=== PATIENT | male | born 1985 | race American Indian/Alaskan Native ===

== ENCOUNTER 2016-04-01 06:53 | Emergency (ER) | payer MEDICARE ==
[2016-04-01 07:34] LABS: Urine Drugs of Abuse Note Disclamer
[2016-04-01 07:59] LABS: Basophils % (Auto) 0.8 % (0.0-1.8); Eosinophils % (Auto) 0.9 % (0.0-4.3); Hematocrit 45.2 % (35.5-45.6); Hemoglobin 14.9 gm/dl (11.8-15.2); Mean Corpuscular HGB Conc 33 % (32-34); Mean Corpuscular Hemoglobin 29 pg (28-32); Mean Corpuscular Volume 87 fl (84-94); Platelet Count 279 K/mm3 (140-440); Red Blood Count 5.22 M/mm3 (3.65-5.03); White Blood Count 11.2 K/mm3 (4.5-11.0)
[2016-04-01 08:08] LABS: Anion Gap 18 mmol/L; Blood Urea Nitrogen 9 mg/dL (9-20); Calcium 9.2 mg/dL (8.4-10.2); Carbon Dioxide 25 mmol/L (22-30); Chloride 98.2 mmol/L (98-107); Glucose 103 mg/dL (75-100); Sodium 137 mmol/L (137-145)
[2016-04-01 08:16] LABS: Bilirubin,Urine NEG (Negative); Blood,Urine MOD (Negative); Ketones,Urine NEG (Negative); Leukocyte Esterase,Urine NEG (Negative); Mucus,Urine FEW /HPF; Nitrite,Urine NEG (Negative); Protein,Urine <15 mg/dL mg/dL (Negative); Urobilinogen,Urine < 2.0 mg/dL (<2.0)
[2016-04-01] MEDS ORDERED: CYMBALTA PO ONE (12:10)
[2016-04-01] MEDS ORDERED: FIORICET PO ONE (12:10)
--- NOTE | 2016-04-01 12:23 | Emergency Department Report ---
HPI - General Chief Complaint: Psych Time Seen by Provider: 04/01/16 12:02 - HPI HPI: Room 16 The patient is a 30-year-old male presenting with a chief complaint of schizoaffective disorder. Patient states he doesn't an argument with his mother property. The patient states he called police who chest. When they arrived they notified him that his mother had a restraining order against. The patient states the chief accounting officer wanted patient to come to the hospital for evaluation. The patient states he has not had any of his psychiatric medications for the past 5-6 days. Patient denies suicidal or homicidal ideation. Patient denies auditory hallucinations but admits to occasional visual hallucinations when he sees "colors." Location: Mental state Duration: [see above] Quality: Agitated Severity: Moderate Modifying factors: [see above] Context: [see above] Mode of transportation: [not driving] ED Past Medical Hx - Past Medical History Previous Medical History?: Yes Hx Hypertension: Yes Hx Diabetes: Yes Hx Psychiatric Treatment: Yes - Surgical History Past Surgical History?: No - Family History Family history: no significant - Social History Smoking Status: Current Every Day Smoker (1/2 pack per day) Substance Use Type: None, Marijuana - Medications Home Medications: Home Medications Medication Instructions Recorded Confirmed Last Taken Type DULoxetine [Cymbalta] 30 mg PO BID 06/30/15 06/30/15 3 Days Ago History Lurasidone HCl [Latuda] 40 mg PO QHS 06/30/15 06/30/15 3 Days Ago History diphenhydrAMINE [Benadryl CAP] 50 mg PO QHS PRN 06/30/15 06/30/15 3 Days Ago History Haloperidol Lactate [Haldol] 04/01/16 Unknown History Lisinopril [Zestril TAB] 04/01/16 Unknown History traZODone [Desyrel] 04/01/16 Unknown History ED Review of Systems ROS: Stated complaint: MH EVALUATION Other details as noted in HPI Comment: All other systems reviewed and negative Constitutional: denies: chills, fever Eyes: denies: eye pain, eye discharge, vision change ENT: denies: ear pain, throat pain Respiratory: denies: cough, shortness of breath, wheezing Cardiovascular: denies: chest pain, palpitations Endocrine: no symptoms reported Gastrointestinal: denies: abdominal pain, nausea, diarrhea Genitourinary: denies: urgency, dysuria Musculoskeletal: denies: back pain, joint swelling, arthralgia Skin: denies: rash, lesions Neurological: headache Psychiatric: visual hallucinations. denies: auditory hallucinations, homicidal thoughts, suicidal thoughts Hematological/Lymphatic: denies: easy bleeding, easy bruising Physical Exam - Physical Exam Vital Signs: Vital Signs 04/01/16 04/01/16 07:10 12:06 Temperature 98.2 F 98.4 F Pulse Rate 70 79 Respiratory 20 18 Rate Blood Pressure 140/102 Blood Pressure 137/92 [Left] O2 Sat by Pulse 100 100 Oximetry Physical Exam: GENERAL: The patient is well-developed well-nourished male lying on stretcher not appearing to be in acute distress. [] HEENT: Normocephalic. Atraumatic. Extraocular motions are intact. Patient has moist mucous membranes. NECK: Supple. No meningitic signs are noted. Trachea midline CHEST/LUNGS: Clear to auscultation. There is no respiratory distress noted. HEART/CARDIOVASCULAR: Regular. There is no tachycardia. There is no gallop rub or murmur. ABDOMEN: Abdomen is soft, nontender. Patient has normal bowel sounds. There is no abdominal distention. SKIN: There is no rash. There is no edema. There is no diaphoresis. NEURO: The patient is awake, alert, and oriented. The patient is cooperative. The patient has normal speech MUSCULOSKELETAL: There is no evidence of acute injury. ED Course Vital Signs 04/01/16 04/01/16 07:10 12:06 Temperature 98.2 F 98.4 F Pulse Rate 70 79 Respiratory 20 18 Rate Blood Pressure 140/102 Blood Pressure 137/92 [Left] O2 Sat by Pulse 100 100 Oximetry - Consultations Consultation #1: 04/01/16 13:00 Case discussed with mental health customer care voice consultant. He states the patient admitted to suicidal ideation with him. Patient subsequently placed on 1013 ED Medical Decision Making - Lab Data Result diagrams: 04/01/16 07:37 04/01/16 07:37 Laboratory Tests 04/01/16 04/01/16 04/01/16 07:17 07:17 07:37 WBC RBC Hgb Hct MCV MCH MCHC RDW Plt Count Lymph % (Auto) [place] % (Auto) Eos % (Auto) Baso % (Auto) Lymph # [place] # Eos # Baso # Seg Neutrophils % Seg Neutrophils # Sodium 137 Potassium 4.0 Chloride 98.2 Carbon Dioxide 25 Anion Gap 18 BUN 9 Creatinine 0.9 Estimated GFR > 60 BUN/Creatinine Ratio 10.00 Glucose 103 H Calcium 9.2 Urine Color Straw Urine Turbidity Clear Urine pH 6.0 Ur Specific [place] 1.012 Urine Protein <15 mg/dl Urine Glucose (UA) Neg Urine Ketones Neg Urine Blood Mod Urine Nitrite Neg Urine Bilirubin Neg Urine Urobilinogen < 2.0 Ur Leukocyte Esterase Neg Urine WBC (Auto) 1.0 Urine RBC (Auto) 21.0 Urine Mucus Few Urine Opiates Screen Presumptive negative Urine Methadone Screen Presumptive negative Ur Barbiturates Screen Presumptive negative Ur Phencyclidine Scrn Presumptive negative Ur Amphetamines Screen Presumptive negative U Benzodiazepines Scrn Presumptive negative Urine Cocaine Screen Presumptive negative U Marijuana (THC) Screen Presumptive negative Drugs of Abuse Note Disclamer Plasma/Serum Alcohol 04/01/16 04/01/16 07:37 07:37 WBC 11.2 H RBC 5.22 H Hgb 14.9 Hct 45.2 MCV 87 MCH 29 MCHC 33 RDW 14.0 Plt Count 279 Lymph % (Auto) 20.8 [place] % (Auto) 8.1 H Eos % (Auto) 0.9 Baso % (Auto) 0.8 Lymph # 2.3 [place] # 0.9 H Eos # 0.1 Baso # 0.1 Seg Neutrophils % 69.4 Seg Neutrophils # 7.8 H Sodium Potassium Chloride Carbon Dioxide Anion Gap BUN Creatinine Estimated GFR BUN/Creatinine Ratio Glucose Calcium Urine Color Urine Turbidity Urine pH Ur Specific [place] Urine Protein Urine Glucose (UA) Urine Ketones Urine Blood Urine Nitrite Urine Bilirubin Urine Urobilinogen Ur Leukocyte Esterase Urine WBC (Auto) Urine RBC (Auto) Urine Mucus Urine Opiates Screen Urine Methadone Screen Ur Barbiturates Screen Ur Phencyclidine Scrn Ur Amphetamines Screen U Benzodiazepines Scrn Urine Cocaine Screen U Marijuana (THC) Screen Drugs of Abuse Note Plasma/Serum Alcohol < 0.01 - Differential Diagnosis schizoaffective disorder Critical care attestation.: If time is entered above; I have spent that time in minutes in the direct care of this critically ill patient, excluding procedure time. ED Disposition Clinical Impression: Schizoaffective disorder, Suicidal ideation Disposition: DC/TX PSY HOSP/PSY UNIT Is pt being admited?: No Does the pt Need Aspirin: No Condition: Serious Referrals: RODRIGUEZ,PEDRO J, MD [Primary Care Provider] - 3-5 Days Time of Disposition: 13:00 (awaiting acceptance)
[2016-04-01 17:45] VITALS: BP 147/87
== END 2016-04-01 17:45 ==
LOC: ED 06:53 → EEVIPCON 06:53 → ED 17:45
DX: F25.9 Schizoaffective disorder, unspecified (principal); R45.851 Suicidal ideations; I10 Essential (primary) hypertension; E11.9 Type 2 diabetes mellitus without complications; F12.10 Cannabis abuse, uncomplicated; F17.200 Nicotine dependence, unspecified, uncomplicated
CPT/HCPCS: 36415; 80048; 80307; 81001; 85025; 99285; G0480; 80320

== ENCOUNTER 2016-05-07 23:31 | Emergency (ER) | payer MEDICARE ==
[2016-05-08 00:23] LABS: Eosinophils % (Auto) 0.8 % (0.0-4.3); Hematocrit 46.3 % (35.5-45.6); Hemoglobin 15.4 gm/dl (11.8-15.2); Mean Corpuscular HGB Conc 33 % (32-34); Mean Corpuscular Hemoglobin 29 pg (28-32); Mean Corpuscular Volume 86 fl (84-94); Platelet Count 312 K/mm3 (140-440); Red Blood Count 5.39 M/mm3 (3.65-5.03); White Blood Count 12.8 K/mm3 (4.5-11.0)
[2016-05-08 00:43] LABS: Anion Gap 17 mmol/L; Blood Urea Nitrogen 10 mg/dL (9-20); Calcium 9.5 mg/dL (8.4-10.2); Carbon Dioxide 28 mmol/L (22-30); Chloride 96.1 mmol/L (98-107); Glucose 93 mg/dL (75-100); Sodium 137 mmol/L (137-145)
[2016-05-08 02:07] LABS: Urine Drugs of Abuse Note Disclamer
--- NOTE | 2016-05-08 02:17 | Emergency Department Report ---
ED Psych HPI - General Chief Complaint: Psych Stated Complaint: SUICIDAL Time Seen by Provider: 05/08/16 01:15 Source: patient Mode of arrival: Ambulatory Limitations: No Limitations - History of Present Illness Initial Comments: 30-year-old male with a past medical history hypertension, schizoaffective disorder, and elevated cholesterol presents to the hospital complaints of suicidal ideation. Patient was just discharged today from the [facility] when he has been admitted for the last 20+ days. When questioned as to why he was admitted he states he was homeless. Patient apparently still is homeless. He states he has been compliant with his medication. Denies auditory or visual hallucinations. Patient has attempted suicide in the past by toxic ingestion no current plan reported. No homicidal ideation reported. Patient complains of left upper jaw/dental pain. - Related Data Home Medications Medication Instructions Recorded Confirmed Last Taken Duloxetine HCl [Cymbalta] 20 mg PO QDAY 04/01/16 04/01/16 Unknown Haloperidol [Haldol] 5 mg PO Q6H PRN 04/01/16 04/01/16 Unknown diphenhydrAMINE [Benadryl CAP] 25 mg PO Q6HR PRN 04/01/16 04/01/16 Unknown traZODone [Desyrel] 1 mg PO DAILY 04/01/16 04/01/16 Unknown Previous Rx's Medication Instructions Recorded Last Taken Type Famotidine [Pepcid] 20 mg PO BID #60 tablet 04/14/16 Unknown Rx Lisinopril [Zestril TAB] 10 mg PO QDAY #30 tablet 04/14/16 Unknown Rx Allergies Allergy/AdvReac Type Severity Reaction Status Date / Time peanut Allergy Swelling Verified 04/11/16 23:53 peanut oil Allergy Swelling Verified 04/01/16 07:11 ED Review of Systems ROS: Stated complaint: SUICIDAL Other details as noted in HPI Comment: All other systems reviewed and negative Other: Constitutional: No fevers chills Eyes: No eye pain visual changes ENT: as per hpi Neck: Denies pain Respiratory: Denies cough wheezing shortness of breath Cardiovascular: Denies chest pain, palpitations, syncope GI: Denies abdominal pain, nausea, vomiting, diarrhea : Denies dysuria Musculoskeletal: Denies back pain Skin: Denies rash, lesions, erythema Neurologic: Denies headache, numbness, weakness Psychiatric: as per hpi ED Past Medical Hx - Past Medical History Previous Medical History?: Yes Hx Hypertension: Yes Hx Congestive Heart Failure: No Hx Diabetes: No Hx Psychiatric Treatment: Yes (SCHIZO) Hx Asthma: No Hx COPD: No Additional medical history: high chol - Surgical History Past Surgical History?: No - Social History Smoking Status: Current Every Day Smoker Substance Use Type: None - Medications Home Medications: Home Medications Medication Instructions Recorded Confirmed Last Taken Type Duloxetine HCl [Cymbalta] 20 mg PO QDAY 04/01/16 04/01/16 Unknown History Haloperidol [Haldol] 5 mg PO Q6H PRN 04/01/16 04/01/16 Unknown History diphenhydrAMINE [Benadryl CAP] 25 mg PO Q6HR PRN 04/01/16 04/01/16 Unknown History traZODone [Desyrel] 1 mg PO DAILY 04/01/16 04/01/16 Unknown History Famotidine [Pepcid] 20 mg PO BID #60 tablet 04/14/16 Unknown Rx Lisinopril [Zestril TAB] 10 mg PO QDAY #30 tablet 04/14/16 Unknown Rx ED Physical Exam - General Limitations: No Limitations - Other Other exam information: General: No limitations, patient is alert in no acute distress Head exam: Atraumatic, normocephalic Eyes exam: Normal appearance, pupils equal reactive to light, extraocular movements intact ENT: Moist mucous membrane, normal oropharynx Neck exam: Normal inspection, full range of motion, no meningismus nontender Respiratory exam: Clear to auscultation bilateral, no wheezes, rales, crackles Cardiovascular: Normal rate and rhythm, normal heart sounds Abdomen: Soft, nondistended, and nontender, with normal bowel sounds, no rebound, or guarding Extremity: Full range of motion normal inspection no deformity Back: Normal Inspection, full range of motion, no tenderness Neurologic: Alert, oriented x3, cranial nerves intact, no motor or sensory deficit Psychiatric: normal affect, normal mood Skin: Warm, dry, intact ED Course Vital Signs 05/07/16 05/07/16 05/08/16 23:36 23:49 01:35 Temperature 99.2 F 99.2 F Pulse Rate 108 H 108 H Respiratory 20 20 18 Rate Blood Pressure 135/96 Blood Pressure 135/96 [Left] O2 Sat by Pulse 99 99 99 Oximetry - Reevaluation(s) Reevaluation #1: 05/08/16 02:20 Patient was initially tachycardic on triage vital signs however, repeat vital signs including orthostatics did not reveal any tachycardia or vital sign abnormality ED Medical Decision Making - Lab Data Result diagrams: 05/08/16 00:10 05/08/16 00:10 Lab Results 05/08/16 05/08/16 05/08/16 Range/Units 00:10 00:10 00:10 WBC 12.8 H (4.5-11.0) K/mm3 RBC 5.39 H (3.65-5.03) M/mm3 Hgb 15.4 H (11.8-15.2) gm/dl Hct 46.3 H (35.5-45.6) % MCV 86 (84-94) fl MCH 29 (28-32) pg MCHC 33 (32-34) % RDW 14.0 (13.2-15.2) % Plt Count 312 (140-440) K/mm3 Lymph % (Auto) 25.3 (13.4-35.0) % [place] % (Auto) 9.6 H (0.0-7.3) % Eos % (Auto) 0.8 (0.0-4.3) % Baso % (Auto) 1.0 (0.0-1.8) % Lymph # 3.2 (1.2-5.4) K/mm3 [place] # 1.2 H (0.0-0.8) K/mm3 Eos # 0.1 (0.0-0.4) K/mm3 Baso # 0.1 (0.0-0.1) K/mm3 Seg Neutrophils % 63.3 (40.0-70.0) % Seg Neutrophils # 8.1 H (1.8-7.7) K/mm3 Sodium 137 (137-145) mmol/L Potassium 4.0 (3.6-5.0) mmol/L Chloride 96.1 L (98-107) mmol/L Carbon Dioxide 28 (22-30) mmol/L Anion Gap 17 mmol/L BUN 10 (9-20) mg/dL Creatinine 1.0 (0.8-1.5) mg/dL Estimated GFR > 60 ml/min BUN/Creatinine Ratio 10.00 % Glucose 93 (75-100) mg/dL Calcium 9.5 (8.4-10.2) mg/dL Urine Color (Yellow) Urine Turbidity (Clear) Urine pH (5.0-7.0) Ur Specific [place] (1.003-1.030) Urine Protein (Negative) mg/dL Urine Glucose (UA) (Negative) mg/dL Urine Ketones (Negative) mg/dL Urine Blood (Negative) Urine Nitrite (Negative) Urine Bilirubin (Negative) Urine Urobilinogen (<2.0) mg/dL Ur Leukocyte Esterase (Negative) Urine WBC (Auto) (0.0-6.0) /HPF Urine RBC (Auto) (0.0-6.0) /HPF Urine Mucus /HPF Urine Opiates Screen Urine Methadone Screen Ur Barbiturates Screen Ur Phencyclidine Scrn Ur Amphetamines Screen U Benzodiazepines Scrn Urine Cocaine Screen U Marijuana (THC) Screen Drugs of Abuse Note Plasma/Serum Alcohol < 0.01 (0-0.07) gm% 05/08/16 05/08/16 Range/Units 01:46 01:46 WBC (4.5-11.0) K/mm3 RBC (3.65-5.03) M/mm3 Hgb (11.8-15.2) gm/dl Hct (35.5-45.6) % MCV (84-94) fl MCH (28-32) pg MCHC (32-34) % RDW (13.2-15.2) % Plt Count (140-440) K/mm3 Lymph % (Auto) (13.4-35.0) % [place] % (Auto) (0.0-7.3) % Eos % (Auto) (0.0-4.3) % Baso % (Auto) (0.0-1.8) % Lymph # (1.2-5.4) K/mm3 [place] # (0.0-0.8) K/mm3 Eos # (0.0-0.4) K/mm3 Baso # (0.0-0.1) K/mm3 Seg Neutrophils % (40.0-70.0) % Seg Neutrophils # (1.8-7.7) K/mm3 Sodium (137-145) mmol/L Potassium (3.6-5.0) mmol/L Chloride (98-107) mmol/L Carbon Dioxide (22-30) mmol/L Anion Gap mmol/L BUN (9-20) mg/dL Creatinine (0.8-1.5) mg/dL Estimated GFR ml/min BUN/Creatinine Ratio % Glucose (75-100) mg/dL Calcium (8.4-10.2) mg/dL Urine Color Yellow (Yellow) Urine Turbidity Clear (Clear) Urine pH 6.0 (5.0-7.0) Ur Specific [place] 1.021 (1.003-1.030) Urine Protein <15 mg/dl (Negative) mg/dL Urine Glucose (UA) Neg (Negative) mg/dL Urine Ketones Tr (Negative) mg/dL Urine Blood Neg (Negative) Urine Nitrite Neg (Negative) Urine Bilirubin Neg (Negative) Urine Urobilinogen 2.0 (<2.0) mg/dL Ur Leukocyte Esterase Neg (Negative) Urine WBC (Auto) 1.0 (0.0-6.0) /HPF Urine RBC (Auto) 13.0 (0.0-6.0) /HPF Urine Mucus 1+ /HPF Urine Opiates Screen Presumptive negative Urine Methadone Screen Presumptive negative Ur Barbiturates Screen Presumptive negative Ur Phencyclidine Scrn Presumptive negative Ur Amphetamines Screen Presumptive negative U Benzodiazepines Scrn Presumptive negative Urine Cocaine Screen Presumptive negative U Marijuana (THC) Screen Presumptive negative Drugs of Abuse Note Disclamer Plasma/Serum Alcohol (0-0.07) gm% - Medical Decision Making Patient is medically clear for psychiatric admission. Patient admits in the ER to myself and mental health evaluated that he is only suicidal because he is homeless and if we can arrange a place for him and stay with support he would not commit suicide. Denies active plan currently. We're attempting to admit patient to [facility] program similar to [facility] he was discharged from. A psychiatrist as scheduled to round in the a.m. and will sign a 1013 if necessary. At my disposition time a 1013 has not been signed and we are attempting to get patient into the outpatient treatment which will occur during next shift. - Differential Diagnosis secondary gain, homelessness, suicidal ideation, schizophrenia, psychosis Critical Care Time: No Critical care attestation.: If time is entered above; I have spent that time in minutes in the direct care of this critically ill patient, excluding procedure time. ED Disposition Clinical Impression: Suicidal ideation, Schizoaffective disorder, Homelessness, Medical clearance for psychiatric admission Disposition: DC/TX PSY HOSP/PSY UNIT Is pt being admited?: No Condition: Stable Time of Disposition: 05:38 (awaiting acceptance)
[2016-05-08 02:20] LABS: Bilirubin,Urine NEG (Negative); Blood,Urine NEG (Negative); Ketones,Urine TR mg/dL (Negative); Leukocyte Esterase,Urine NEG (Negative); Mucus,Urine 1+ /HPF; Nitrite,Urine NEG (Negative); Protein,Urine <15 mg/dL mg/dL (Negative)
[2016-05-08] MEDS ORDERED: TYLENOL PO PRN (05:40)
[2016-05-08] MEDS ORDERED: ALUM-MAG HYDROX-SIMETH 200-200-20MG/5ML PO PRN (05:40)
[2016-05-08] MEDS ORDERED: BENADRYL PO PRN (05:40)
[2016-05-08] MEDS ORDERED: HALDOL PO PRN (05:40)
[2016-05-08] MEDS ORDERED: MILK OF MAGNESIA PO PRN (05:40)
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
[2016-05-08] MEDS ORDERED: NON-FORMULARY (Duloxetine Hcl [Cymbalta] 20 MG) PO SCH (10:00)
[2016-05-08] MEDS ORDERED: ZESTRIL PO SCH (10:00)
[2016-05-08] MEDS ORDERED: DESYREL PO SCH ×2 (10:00)
[2016-05-08] MEDS ORDERED: PEPCID PO SCH (10:00)
[2016-05-08 11:07] VITALS: BP 115/74
== END 2016-05-08 16:00 ==
LOC: EEVIPCON 23:31 → ED 23:31
DX: R45.851 Suicidal ideations (principal); F20.9 Schizophrenia, unspecified; I10 Essential (primary) hypertension; E78.00 Pure hypercholesterolemia, unspecified; F17.200 Nicotine dependence, unspecified, uncomplicated; Z91.013 Allergy to seafood
CPT/HCPCS: 36415; 80048; 80307; 81001; 85025; 99285; G0480; 80320

== ENCOUNTER 2020-07-11 09:27 | Emergency (ER) | payer MEDICARE ==
[2020-07-11 09:35] VITALS: BP 128/82
[2020-07-11] MEDS ORDERED: ASPIRIN 81 MG TAB CHEW PO ONE (10:18)
--- NOTE | 2020-07-11 10:24 | Emergency Department Report ---
ED General Adult HPI - General Chief complaint: Chest Pain Stated complaint: CHEST PAIN DUE TO MEDICATION Time Seen by Provider: 07/11/20 10:18 Source: patient Mode of arrival: Ambulatory Limitations: No Limitations - History of Present Illness Severity scale (0 -10): 8 - Related Data Home Medications Medication Instructions Recorded Confirmed Last Taken Duloxetine HCl [Cymbalta] 20 mg PO QDAY 04/01/16 04/01/16 Unknown diphenhydrAMINE [Benadryl CAP] 25 mg PO Q6HR PRN 04/01/16 04/01/16 Unknown haloperidoL [Haldol] 5 mg PO Q6H PRN 04/01/16 04/01/16 Unknown traZODone [Desyrel] 1 mg PO DAILY 04/01/16 04/01/16 Unknown Previous Rx's Medication Instructions Recorded Last Taken Type Famotidine [Pepcid] 20 mg PO BID #60 tablet 04/14/16 Unknown Rx lisinopriL [Zestril TAB] 10 mg PO QDAY #30 tablet 04/14/16 Unknown Rx Allergies Allergy/AdvReac Type Severity Reaction Status Date / Time peanut Allergy Swelling Verified 04/11/16 23:53 peanut oil Allergy Swelling Verified 04/01/16 07:11 ED Review of Systems ROS: Stated complaint: CHEST PAIN DUE TO MEDICATION Other details as noted in HPI ED Past Medical Hx - Past Medical History Previous Medical History?: Yes Hx Hypertension: Yes Hx Congestive Heart Failure: No Hx Diabetes: No Hx Psychiatric Treatment: Yes (SCHIZO) Hx Asthma: No Hx COPD: No Additional medical history: high chol - Surgical History Past Surgical History?: No - Social History Smoking Status: Current Every Day Smoker Substance Use Type: None - Medications Home Medications: Home Medications Medication Instructions Recorded Confirmed Last Taken Type Duloxetine HCl [Cymbalta] 20 mg PO QDAY 04/01/16 04/01/16 Unknown History diphenhydrAMINE [Benadryl CAP] 25 mg PO Q6HR PRN 04/01/16 04/01/16 Unknown History haloperidoL [Haldol] 5 mg PO Q6H PRN 04/01/16 04/01/16 Unknown History traZODone [Desyrel] 1 mg PO DAILY 04/01/16 04/01/16 Unknown History Famotidine [Pepcid] 20 mg PO BID #60 tablet 04/14/16 Unknown Rx lisinopriL [Zestril TAB] 10 mg PO QDAY #30 tablet 04/14/16 Unknown Rx ED Physical Exam - General Limitations: No Limitations ED Course Vital Signs 07/11/20 09:30 Temperature 98.4 F Pulse Rate 93 H Respiratory 18 Rate Blood Pressure 128/82 [Right] O2 Sat by Pulse 96 Oximetry Critical care attestation.: If time is entered above; I have spent that time in minutes in the direct care of this critically ill patient, excluding procedure time. ED Disposition Condition: Stable HEART Score - HEART Score EKG: Non-specific Age: < 45
--- NOTE | 2020-07-11 10:29 | Event Note ---
ED Screening Note Date of service: 07/11/20 Time: 10:27 ED Screening Note: 34-year-old male patient with history of hypertension, hyperlipidemia, and tobacco use presents to the emergency department with complaints of left-sided chest pain with associated dyspnea, palpitations, and generalized weakness starting yesterday. Symptoms are intermittent and worse with exertion. Patient is on Depakote for substance abuse disorder and attributes his pain to restarting this medication earlier in the week. General: Awake, appropriately interactive, no acute distress. Neck: Supple. Full range of motion intact. Cardiovascular: Normal peripheral perfusion. Pulmonary: No respiratory distress. Patient is speaking normally without use of accessory muscles. Skin: No apparent rashes or lesions. Neurological: No facial asymmetry. Speech is clear. Follows commands. Patient is alert and oriented. Musculoskeletal: Moves all four extremities spontaneously with normal range of motion. Psych: Cooperative. Appropriate mood and affect. EKG shows normal sinus rhythm with a ventricular rate of 84 bpm. Normal axis. Normal NC interval. Normal QT interval. Anterior T wave inversions; unchanged from prior EKG in 2017. I have greeted and performed a focused rapid initial assessment of this patient. A comprehensive ED assessment and evaluation of the patient, analysis of all test results, and completion of the medical decision-making process will be conducted by additional ED providers. This initial assessment/diagnostic orders/clinical plan/treatment(s) is/are subject to change based on patients health status, clinical progression and re-assessment. Further treatment and workup at subsequent clinical provider's discretion. Patient/guardian urged not to elope from the ED as their condition may be serious if not clinically assessed and managed.
[2020-07-11 10:44] LABS: Basophils % (Auto) 0.4 % (0.0-1.8); Eosinophils # (Auto) 0.1 K/mm3 (0.0-0.4); Hematocrit 43.5 % (35.5-45.6); Hemoglobin 14.5 gm/dl (11.8-15.2); Lymphocytes # (Auto) 1.5 K/mm3 (1.2-5.4); Lymphocytes % (Auto) 15.1 % (13.4-35.0); Mean Corpuscular HGB Conc 33 % (32-34); Mean Corpuscular Volume 87 fl (84-94); Monocytes % (Auto) 10.6 % (0.0-7.3); Platelet Count 295 K/mm3 (140-440); Red Blood Count 4.99 M/mm3 (3.65-5.03); Red Cell Distribution Width 14.8 % (13.2-15.2)
--- NOTE | 2020-07-11 10:46 | XRay Report ---
CHEST 2 VIEWS INDICATION / CLINICAL INFORMATION: chest pain. COMPARISON: None available. FINDINGS: SUPPORT DEVICES: None. HEART / MEDIASTINUM: No significant abnormality. LUNGS / PLEURA: No significant pulmonary or pleural abnormality. No pneumothorax. ADDITIONAL FINDINGS: No significant additional findings. IMPRESSION: 1. No acute findings. Signer Name: Sailaja Blanco MD Signed: 07/11/2020 10:42 AM Workstation Name: [id number]
[2020-07-11 10:50] LABS: INR 1.01 (0.87-1.13)
[2020-07-11 10:51] LABS: Partial Thromboplastin Time 28.9 Sec. (24.2-36.6)
[2020-07-11 11:15] LABS: Alanine Aminotransferase 21 units/L (7-56); BUN/Creatinine Ratio 11; Blood Urea Nitrogen 9 mg/dL (9-20); Calcium 9.2 mg/dL (8.4-10.2); Hemolysis Index 12
--- NOTE | 2020-07-12 13:52 | Electrocardiograph Report ---
[facility] Test Date: 2020-07-11 Test Time: 09:36:39 Pat Name: MANE TORRE Department: Room: Gender: M Physician Relations Representative: : 1985 Requested By: CHANG MENSAH Order Number: [id number] Reading MD: Crystal Cueva Measurements Intervals [place] Rate: 84 P: 37 NH: 139 QRS: 20 QRSD: 89 T: 43 QT: 340 QTc: 403 Interpretive Statements Sinus rhythm Nonspecific T abnormalities, anterior leads No previous ECG available for comparison Electronically Signed On 07-12-2020 13:52:04 EDT by Crystal Cueva
== END 2020-07-11 19:00 | disposition left against medical advice (07) ==
LOC: ED 09:27
DX: R07.89 Other chest pain (principal); R06.00 Dyspnea, unspecified; R00.2 Palpitations; Z53.21 Procedure and treatment not carried out due to patient leaving prior to being seen by health care provider
CPT/HCPCS: 36415; 71046; 80053; 83735; 84484; 85025; 85610; 85730; 93005

== ENCOUNTER 2020-07-13 02:24 | Emergency (ER) | payer MEDICARE ==
[2020-07-13 04:10] VITALS: BP 136/84
[2020-07-13 04:34] LABS: Bilirubin,Urine NEG (Negative); Blood,Urine NEG (Negative); Color,Urine Yellow (Yellow); Mucus,Urine FEW /HPF; Protein,Urine <15 mg/dL mg/dL (Negative); Urobilinogen,Urine < 2.0 mg/dL (<2.0)
[2020-07-13 04:53] LABS: Amphetamine Screen,Urine PRESUMPTIVE NEGATIVE; Benzodiazepines Screen,Urine PRESUMPTIVE NEGATIVE; Cocaine Screen,Urine PRESUMPTIVE POSITIVE
[2020-07-13 04:54] LABS: Basophils % (Auto) 0.3 % (0.0-1.8); Eosinophils # (Auto) 0.2 K/mm3 (0.0-0.4); Eosinophils % (Auto) 1.4 % (0.0-4.3); Hemoglobin 15.3 gm/dl (11.8-15.2); Lymphocytes # (Auto) 2.4 K/mm3 (1.2-5.4); Lymphocytes % (Auto) 18.9 % (13.4-35.0); Mean Corpuscular HGB Conc 33 % (32-34); Mean Corpuscular Volume 89 fl (84-94); Monocytes # (Auto) 1.6 K/mm3 (0.0-0.8); Monocytes % (Auto) 12.4 % (0.0-7.3); Platelet Count 276 K/mm3 (140-440); Red Cell Distribution Width 15.3 % (13.2-15.2)
[2020-07-13 05:08] LABS: Cannabinoid Screen,Urine PRESUMPTIVE NEGATIVE; Methadone Screen,Urine PRESUMPTIVE NEGATIVE; Opiate Screen,Urine PRESUMPTIVE NEGATIVE
[2020-07-13 05:13] LABS: BUN/Creatinine Ratio 12; Blood Urea Nitrogen 11 mg/dL (9-20); Calcium 9.4 mg/dL (8.4-10.2); Hemolysis Index 4
--- NOTE | 2020-07-13 05:51 | Emergency Department Report ---
ED Medical Clearance HPI - General Chief complaint: Medical Clearance Stated complaint: MEDICAL CLEARANCE Time Seen by Provider: 07/13/20 05:45 Source: patient Mode of arrival: Ambulatory - History of Present Illness Initial comments: 34-year-old Afghan male patient of anchor for substance abuse presents emergency department seeking to be medically cleared again. Apparently patient left the facility for moment and then instructed to return the advised he would need to get his vital signs repeated to restart the process as unsure what may have taken place in their absence. Reports no fever, chills, sweats, palpitations, vomiting Alledged Intoxication: No Compliant with Home Medications: No Traumatic Symptoms: denies traumatic injury Associated Symptoms: denies: chest pain, shortness of breath, diaphoresis, denies other symptoms, cough, headaches, anorexia, nausea/vomiting, rash, seizure, syncope, weakness Home medications: Home Medications Medication Instructions Recorded Confirmed Last Taken Duloxetine HCl [Cymbalta] 20 mg PO QDAY 04/01/16 04/01/16 Unknown diphenhydrAMINE [Benadryl CAP] 25 mg PO Q6HR PRN 04/01/16 04/01/16 Unknown haloperidoL [Haldol] 5 mg PO Q6H PRN 04/01/16 04/01/16 Unknown traZODone [Desyrel] 1 mg PO DAILY 04/01/16 04/01/16 Unknown Previous Rx's Medication Instructions Recorded Last Taken Type Famotidine [Pepcid] 20 mg PO BID #60 tablet 04/14/16 Unknown Rx lisinopriL [Zestril TAB] 10 mg PO QDAY #30 tablet 04/14/16 Unknown Rx Allergies/Adverse reactions: Allergies Allergy/AdvReac Type Severity Reaction Status Date / Time peanut Allergy Swelling Verified 04/11/16 23:53 peanut oil Allergy Swelling Verified 04/01/16 07:11 ED Review of Systems ROS: Stated complaint: MEDICAL CLEARANCE Other details as noted in HPI Comment: All other systems reviewed and negative ED Past Medical Hx - Past Medical History Previous Medical History?: Yes Hx Hypertension: Yes Hx Congestive Heart Failure: No Hx Diabetes: No Hx Psychiatric Treatment: Yes ([facility]) Hx Asthma: No Hx COPD: No Additional medical history: high chol - Surgical History Past Surgical History?: No - Social History Smoking Status: Current Every Day Smoker Substance Use Type: None - Medications Home Medications: Home Medications Medication Instructions Recorded Confirmed Last Taken Type Duloxetine HCl [Cymbalta] 20 mg PO QDAY 04/01/16 04/01/16 Unknown History diphenhydrAMINE [Benadryl CAP] 25 mg PO Q6HR PRN 04/01/16 04/01/16 Unknown History haloperidoL [Haldol] 5 mg PO Q6H PRN 04/01/16 04/01/16 Unknown History traZODone [Desyrel] 1 mg PO DAILY 04/01/16 04/01/16 Unknown History Famotidine [Pepcid] 20 mg PO BID #60 tablet 04/14/16 Unknown Rx lisinopriL [Zestril TAB] 10 mg PO QDAY #30 tablet 04/14/16 Unknown Rx ED Physical Exam - General Limitations: No Limitations General appearance: alert, in no apparent distress - Head Head exam: Present: atraumatic, normocephalic - Eye Eye exam: Present: normal appearance - ENT ENT exam: Present: mucous membranes moist - Neck Neck exam: Present: normal inspection - Respiratory Respiratory exam: Present: normal lung sounds bilaterally. Absent: respiratory distress - Cardiovascular Cardiovascular Exam: Present: regular rate, normal rhythm. Absent: systolic murmur, diastolic murmur, rubs, gallop - GI/Abdominal GI/Abdominal exam: Present: soft, normal bowel sounds - Rectal Rectal exam: Present: deferred - Extremities Exam Extremities exam: Present: normal inspection - Back Exam Back exam: Present: normal inspection - Neurological Exam Neurological exam: Present: alert, oriented X3 - Psychiatric Psychiatric exam: Present: normal affect, normal mood - Skin Skin exam: Present: warm, dry, intact, normal color. Absent: rash ED Course Vital Signs 07/13/20 04:03 Temperature 97.9 F Pulse Rate 78 Respiratory 18 Rate Blood Pressure 136/84 O2 Sat by Pulse 96 Oximetry ED Medical Decision Making - Lab Data Result diagrams: 07/13/20 04:20 07/13/20 04:20 ED Disposition Disposition: DC-01 TO HOME OR SELFCARE Is pt being admited?: No Does the pt Need Aspirin: No Condition: Stable Referrals: PRIMARY CARE,MD [Primary Care Provider] - 3-5 Days
== END 2020-07-13 06:19 | disposition home or self-care (01) ==
LOC: ED 02:24
DX: R07.89 Other chest pain (principal); I10 Essential (primary) hypertension; F20.9 Schizophrenia, unspecified; F17.200 Nicotine dependence, unspecified, uncomplicated; Z79.899 Other long term (current) drug therapy; Z91.010 Allergy to peanuts
CPT/HCPCS: 36415; 80048; 80307; 80320; 81001; 85025; G0480

== ENCOUNTER 2021-07-03 23:03 | Emergency (ER) | payer MEDICARE ==
[2021-07-04] MEDS ORDERED: IBUPROFEN 800 MG TAB PO ONE (03:43)
--- NOTE | 2021-07-04 04:47 | Emergency Department Report ---
ED Abdominal Pain HPI - General Chief Complaint: Abdominal Pain Stated Complaint: ABD PAIN Time Seen by Provider: 07/04/21 03:42 Source: patient, EMS Mode of arrival: Stretcher Limitations: No Limitations - History of Present Illness Initial Comments: Patient 35-year-old male who presents for right upper quadrant and right flank pain. States he lifted a heavy box and felt a snap appointment. Patient denies fevers or chills no nausea no vomiting no dysuria frequency urgency or hematuria. Patient denies history of renal stones. Patient is alert oriented x3 patient is tolerating p.o. there is been no fever or chills. MD Complaint: abdominal pain, flank pain - Related Data Home Medications Medication Instructions Recorded Confirmed Last Taken Duloxetine HCl [Cymbalta] 20 mg PO QDAY 04/01/16 04/01/16 Unknown diphenhydrAMINE [Benadryl CAP] 25 mg PO Q6HR PRN 04/01/16 04/01/16 Unknown haloperidoL [Haldol] 5 mg PO Q6H PRN 04/01/16 04/01/16 Unknown traZODone [Desyrel] 1 mg PO DAILY 04/01/16 04/01/16 Unknown Previous Rx's Medication Instructions Recorded Last Taken Type Famotidine [Pepcid] 20 mg PO BID #60 tablet 04/14/16 Unknown Rx lisinopriL [Zestril TAB] 10 mg PO QDAY #30 tablet 04/14/16 Unknown Rx Naproxen 500 mg PO BID PRN #30 tab 07/04/21 Unknown Rx Allergies Allergy/AdvReac Type Severity Reaction Status Date / Time peanut Allergy Swelling Verified 04/11/16 23:53 peanut oil Allergy Swelling Verified 04/01/16 07:11 ED Review of Systems ROS: Stated complaint: ABD PAIN Other details as noted in HPI Constitutional: no symptoms reported. denies: chills, fever, malaise Eyes: denies: eye pain, eye discharge, vision change ENT: denies: ear pain, throat pain, congestion Respiratory: denies: cough, shortness of breath, wheezing Cardiovascular: denies: chest pain, palpitations Endocrine: no symptoms reported Gastrointestinal: denies: abdominal pain, nausea, diarrhea, constipation Genitourinary: denies: urgency, dysuria Musculoskeletal: denies: back pain, joint swelling, arthralgia Skin: denies: rash, lesions Neurological: denies: headache, weakness, paresthesias, vertigo Psychiatric: denies: anxiety, depression Hematological/Lymphatic: denies: easy bleeding, easy bruising ED Past Medical Hx - Past Medical History Hx Hypertension: Yes Hx Congestive Heart Failure: No Hx Diabetes: No Hx Psychiatric Treatment: Yes ([facility]) Hx Asthma: No Hx COPD: No Additional medical history: high chol - Social History Smoking Status: Current Every Day Smoker Substance Use Type: None - Medications Home Medications: Home Medications Medication Instructions Recorded Confirmed Last Taken Type Duloxetine HCl [Cymbalta] 20 mg PO QDAY 04/01/16 04/01/16 Unknown History diphenhydrAMINE [Benadryl CAP] 25 mg PO Q6HR PRN 04/01/16 04/01/16 Unknown History haloperidoL [Haldol] 5 mg PO Q6H PRN 04/01/16 04/01/16 Unknown History traZODone [Desyrel] 1 mg PO DAILY 04/01/16 04/01/16 Unknown History Famotidine [Pepcid] 20 mg PO BID #60 tablet 04/14/16 Unknown Rx lisinopriL [Zestril TAB] 10 mg PO QDAY #30 tablet 04/14/16 Unknown Rx Naproxen 500 mg PO BID PRN #30 tab 07/04/21 Unknown Rx ED Physical Exam - General Limitations: No Limitations General appearance: alert, in no apparent distress - Head Head exam: Present: atraumatic, normocephalic - Eye Eye exam: Present: normal appearance, PERRL, EOMI Pupils: Present: normal accommodation - ENT ENT exam: Present: mucous membranes moist - Neck Neck exam: Present: normal inspection - Respiratory Respiratory exam: Present: normal lung sounds bilaterally. Absent: respiratory distress - Cardiovascular Cardiovascular Exam: Present: regular rate, normal rhythm. Absent: systolic murmur, diastolic murmur, rubs, gallop - GI/Abdominal GI/Abdominal exam: Present: soft, tenderness (Right abdominal wall tenderness no crepitus no ecchymosis no step-off), normal bowel sounds. Absent: distended, guarding, rebound, rigid, bruit, hernia - Rectal Rectal exam: Present: deferred - exam: Present: normal inspection - Extremities Exam Extremities exam: Present: normal inspection, full ROM, normal capillary refill - Back Exam Back exam: Present: normal inspection, full ROM. Absent: tenderness, CVA tenderness (R), CVA tenderness (L), rash noted - Neurological Exam Neurological exam: Present: alert, oriented X3, CN II-XII intact, normal gait, reflexes normal. Absent: motor sensory deficit - Psychiatric Psychiatric exam: Present: normal affect, normal mood - Skin Skin exam: Present: warm, dry, intact, normal color ED Course Vital Signs 07/03/21 23:09 Temperature 98.5 F Pulse Rate 84 Respiratory 12 Rate Blood Pressure 140/87 O2 Sat by Pulse 98 Oximetry ED Medical Decision Making - Radiology Data Radiology results: report reviewed, image reviewed XR abdomen 1V ap INDICATION / CLINICAL INFORMATION: abd pain. Standing pain. COMPARISON: None available. TECHNIQUE: One view supine AP abdomen. FINDINGS: TUBES / LINES: None. BOWEL GAS PATTERN: No significant abnormality. FREE AIR / EXTRALUMINAL GAS: None seen. ADDITIONAL FINDINGS: No significant additional findings. IMPRESSION: 1. No significant abnormality. Signer Name: Loyd Osei II, MD Signed: 07/04/2021 5:07 AM Workstation Name: [id number] Transcribed By: SHERIDAN Dictated By: LOYD OSEI II, MD Electronically Authenticated By: LOYD OSEI II, MD Signed Date/Time: 07/04/21506 DD/ 6 TD/TT: - Medical Decision Making KUB normal, patient declines labs, however there is no dysuria frequency urgency or hematuria. There is been no fevers chills no nausea no vomiting. Vital signs are stable. Pain is improved with ibuprofen given in ED. Abdominal wall pain is reproducible to deep palpation. Plan DC to home, NSAIDs, follow-up with primary care doctor in 2 to 3 days. Patient will return to emergency department should symptoms worsen. Patient DC'd home in stable condition at this time. Critical care attestation.: If time is entered above; I have spent that time in minutes in the direct care of this critically ill patient, excluding procedure time. ED Disposition Clinical Impression: Abdominal wall strain Qualifiers: Encounter type: initial encounter Qualified Code(s): S39.011A - Strain of muscle, fascia and tendon of abdomen, initial encounter Disposition: HOME / SELF CARE / HOMELESS Is pt being admited?: No Does the pt Need Aspirin: No Condition: Stable Instructions: Muscle Strain, [id number], Adductor Muscle Strain Additional Instructions: Take medication as prescribed, use moist heat therapy to abdominal wall as needed. Follow-up with your doctor in 2 to 3 days. Return to emergency department should symptoms worsen. Prescriptions: Naproxen 500 mg PO BID PRN #30 tab PRN Reason: pain Referrals: BONITA SRINIVASAN MD [Primary Care Provider] - 3-5 Days Forms: Work/School Release Form(ED) Time of Disposition: 05:49
--- NOTE | 2021-07-04 05:12 | XRay Report ---
XR abdomen 1V ap INDICATION / CLINICAL INFORMATION: abd pain. Standing pain. COMPARISON: None available. TECHNIQUE: One view supine AP abdomen. FINDINGS: TUBES / LINES: None. BOWEL GAS PATTERN: No significant abnormality. FREE AIR / EXTRALUMINAL GAS: None seen. ADDITIONAL FINDINGS: No significant additional findings. IMPRESSION: 1. No significant abnormality. Signer Name: Gilmar Osei II, MD Signed: 07/04/2021 5:07 AM Workstation Name: [id number]
[2021-07-04 06:01] VITALS: BP 134/84
== END 2021-07-04 06:01 | disposition home or self-care (01) ==
LOC: ED 23:03
DX: S39.011A Strain of muscle, fascia and tendon of abdomen, initial encounter (principal); I10 Essential (primary) hypertension; Z91.010 Allergy to peanuts; F17.200 Nicotine dependence, unspecified, uncomplicated; X58.XXXA Exposure to other specified factors, initial encounter; Y93.89 Activity, other specified; Y92.89 Other specified places as the place of occurrence of the external cause; Y99.8 Other external cause status
CPT/HCPCS: 74018; 99283